=== PATIENT | female | born 1955 | race Caucasian/White ===

== ENCOUNTER 2017-11-29 13:09 | Inpatient (IN) ==
[2017-11-29] MEDS ORDERED: Isovue-370 500 ML INFUS..BTL IV ONE (17:03)
[2017-11-29] MEDS ORDERED: valACYclovir 500 MG TABLET PO STA (17:04)
--- NOTE | 2017-11-29 17:06 | Emergency Department Note ---
Disposition Clinical Impression: Pulmonary embolism, Deep vein thrombosis of lower extremity, Shortness of breath, Shingles Disposition: Admitted As Inpatient Condition: Fair Time of Disposition: 20:03 Extremity Problem HPI - General Chief complaint: ED Extremity Problem,Nontraumatic Stated complaint: Leg swelling s/p dvt treatment Time Seen by Provider: 11/29/17 16:57 Source: patient Mode of arrival: ambulatory Limitations: no limitations Nursing Notes Reviewed: Yes Vital Signs Reviewed: Yes - History of Present Illness HPI Narrative: Patient presents to the ED with the chief complaint of right leg pain and shortness of breath. Patient was recently diagnosed with a DVT and placed on Xarelto. She reports that her right leg is now more swollen and painful, which is radiating up into her thigh. She is also had the onset of shortness of breath and exertional dyspnea. No chest pain. No fever, chills, abdominal pain, nausea or vomiting. No previous history of PE. She states that she just does not feel right. Pain Scale: 5 - Related Data Home Medications Medication Instructions Recorded Confirmed Atorvastatin Calcium [Lipitor] 20 mg PO HS 11/29/17 11/29/17 Carvedilol 12.5 mg PO BID 11/29/17 11/29/17 Ergocalciferol (VITAMIN D2) 50,000 unit PO QWEEK 11/29/17 11/29/17 [Vitamin D2] Insulin Glargine,Hum.rec.anlog 30 unit SQ BID 11/29/17 11/29/17 [Basaglar Kwikpen U-100] Levothyroxine Sodium 88 mcg PO DAILY 11/29/17 11/29/17 Lisinopril-HCTZ 20-12.5 [Prinzide 1 tab PO DAILY 11/29/17 11/29/17 20-12.5] Potassium Chloride [Klor-Con 10] 10 meq PO DAILY 11/29/17 11/29/17 Rivaroxaban [Xarelto] 15 mg PO BID 11/29/17 11/29/17 Sertraline [Zoloft] 50 mg PO DAILY 11/29/17 11/29/17 Allergies Allergy/AdvReac Type Severity Reaction Status Date / Time cephalexin [From Keflex] Allergy See Verified 11/29/17 17:24 Comments codeine Allergy See Verified 11/29/17 17:24 Comments Review of Systems: As reviewed in the HPI. All other systems reviewed are negative or normal. Past Medical History - Past Medical History Attestation: Yes The following information was validated with the patient. Source: patient Medical history: Reports: DVT, diabetes, hypertension, thyroid disease Psychiatric history: Reports: no psych history - Social History Smoking Status: Never smoker Smokeless Tobacco Status: No Physical Exam CONSTITUTIONAL: [well appearing in no acute distress] SKIN: [Warm, dry, and intact without rash] EYES: [extraocular movements are grossly intact, clear conjunctiva] HENT: [Normocephalic, atraumatic, moist mucus membranes] NECK: [no obvious swelling, normal range of motion] PULMONARY: [normal chest rise and fall, no respiratory distress or stridor CARDIOVASCULAR: [regular rate, distal extremities are warm and well perfused] GASTROINSTESTINAL: [nondistended, non-tender] GENITOURINARY: [deferred] NEUROLOGIC: [normal speech, moves all extremities] MUSCULOSKELETAL: [no gross deformities, atraumatic, right lower extremity is diffusely swollen and tender] PSYCHIATRIC: [normal mood and affect] - General Limitations: no limitations General appearance: alert, in no apparent distress Course Course Narrative: Patient presenting with shortness of breath and extremity swelling. Has a DVT. Concern over PE due to her dyspnea and exertional dyspnea. We will get a CT of her chest. - Reevaluation(s) Reevaluation #1: [facility] called and the patient does have bilateral PEs with moderate clot burden, but no signs of right heart strain. We will get her started on heparin and admit. Vital Signs Temperature 98.8 F 11/29/17 13:10 Pulse Rate 73 11/29/17 13:10 Respiratory Rate 16 11/29/17 13:10 Blood Pressure 124/74 11/29/17 13:10 O2 Sat by Pulse Oximetry 96 11/29/17 13:10 Temperature 98.8 F 11/29/17 13:10 Pulse Rate 77 11/29/17 13:13 Respiratory Rate 18 11/29/17 13:13 Blood Pressure 143/76 11/29/17 13:13 O2 Sat by Pulse Oximetry 98 11/29/17 17:16 Oxygen Delivery Oxygen Delivery Room Air Extremity Problem, Nontraumati - Medical Records Medical records reviewed: Yes I reviewed the patient's medical records. - Lab Data Lab results reviewed: Yes I reviewed the patient's lab results. Result diagrams: 11/29/17 17:15 11/29/17 17:15 Lab Results 11/29/17 11/29/17 11/29/17 Range/Units 17:15 17:15 17:15 WBC 2.9 L (4.3-11.1) K/mcL RBC 4.66 (3.82-4.97) M/mcL Hgb 14.6 (11.5-15.4) g/dL Hct 41.6 (35.3-44.9) % MCV 89.3 (83.0-100.0) fL MCH 31.3 (28.0-33.3) pg MCHC 35.1 (31.6-35.5) g/dL RDW 13.8 (11.5-14.5) % Plt Count 151 (140-400) K/mcL MPV 9.3 L (9.4-12.4) fL Immature Gran % 0.3 (0-4) % Seg Neutrophils % 56.4 % Lymphocytes % 29.2 % Monocytes % 11.7 % Eosinophils % 1.7 % Basophils % 0.7 % Neutrophils # 1.6 (1.6-8.9) K/mcL Lymphocytes # 0.9 (0.6-4.6) K/mcL Monocytes # 0.3 (0.0-1.3) K/mcL Eosinophils # 0.1 (0.0-0.6) K/mcL Basophils # 0.0 (0.0-0.2) K/mcL Immature Plt Fraction 1.7 (1.1-6.1) % PT 17.6 H (9.4-12.1) Seconds INR 1.6 APTT 35.3 (26.0-36.0) Seconds Sodium 138 (136-145) mEq/L Potassium 3.2 L (3.5-5.1) mEq/L Chloride 103 (98-107) mEq/L Carbon Dioxide 27 (23-29) mEq/L BUN 10 (6-20) mg/dL Creatinine 0.64 (0.60-1.20) mg/dL Est GFR ( Amer) > 60 (> 60) Est GFR (Non-Af Amer) > 60 (> 60) BUN/Creatinine Ratio 16 (6-26) Glucose 173 H (70-105) mg/dL Calculated Osmolality 289 (280-300) Calcium 9.6 (8.6-10.3) mg/dL Troponin I < 0.03 (< 0.04) ng/mL B-Natriuretic Peptide (Less than 100) pg/mL Urine Color (Yellow) Urine Clarity (Clear) Urine pH (5.0-8.0) pH Units Ur Specific [place] (1.010-1.025) Urine Protein (Neg-Trace) mg/dL Urine Glucose (UA) (Normal) mg/dL Urine Ketones (Negative) mg/dL Urine Blood (Negative) Urine Nitrite (Negative) Urine Bilirubin (Negative) Urine Urobilinogen (Normal) mg/dL Ur Leukocyte Esterase (Negative) Urine Microscopic RBC (0-3) per hpf Urine Microscopic WBC (0-3) per hpf Ur Squamous Epith Cells (None-Few) per lpf Urine Bacteria (None-Few) per hpf Hyaline Casts (None-Few) per lpf Ur Culture Indicated? (NO) 11/29/17 11/29/17 11/29/17 Range/Units 17:15 17:45 19:36 WBC (4.3-11.1) K/mcL RBC (3.82-4.97) M/mcL Hgb (11.5-15.4) g/dL Hct (35.3-44.9) % MCV (83.0-100.0) fL MCH (28.0-33.3) pg MCHC (31.6-35.5) g/dL RDW (11.5-14.5) % Plt Count (140-400) K/mcL MPV (9.4-12.4) fL Immature Gran % (0-4) % Seg Neutrophils % % Lymphocytes % % Monocytes % % Eosinophils % % Basophils % % Neutrophils # (1.6-8.9) K/mcL Lymphocytes # (0.6-4.6) K/mcL Monocytes # (0.0-1.3) K/mcL Eosinophils # (0.0-0.6) K/mcL Basophils # (0.0-0.2) K/mcL Immature Plt Fraction (1.1-6.1) % PT 16.8 H (9.4-12.1) Seconds INR 1.5 APTT 33.1 (26.0-36.0) Seconds Sodium (136-145) mEq/L Potassium (3.5-5.1) mEq/L Chloride (98-107) mEq/L Carbon Dioxide (23-29) mEq/L BUN (6-20) mg/dL Creatinine (0.60-1.20) mg/dL Est GFR ( Amer) (> 60) Est GFR (Non-Af Amer) (> 60) BUN/Creatinine Ratio (6-26) Glucose (70-105) mg/dL Calculated Osmolality (280-300) Calcium (8.6-10.3) mg/dL Troponin I (< 0.04) ng/mL B-Natriuretic Peptide 60 (Less than 100) pg/mL Urine Color Dark Yellow (Yellow) Urine Clarity Cloudy A (Clear) Urine pH 5.5 (5.0-8.0) pH Units Ur Specific [place] 1.024 (1.010-1.025) Urine Protein 30 H (Neg-Trace) mg/dL Urine Glucose (UA) 100 H (Normal) mg/dL Urine Ketones Negative (Negative) mg/dL Urine Blood Moderate H (Negative) Urine Nitrite Negative (Negative) Urine Bilirubin Small H (Negative) Urine Urobilinogen Normal (Normal) mg/dL Ur Leukocyte Esterase Moderate H (Negative) Urine Microscopic RBC 5-15 H (0-3) per hpf Urine Microscopic WBC 30-50 H (0-3) per hpf Ur Squamous Epith Cells Many H (None-Few) per lpf Urine Bacteria Many H (None-Few) per hpf Hyaline Casts Moderate H (None-Few) per lpf Ur Culture Indicated? NO. A (NO) - Radiology Data Radiology results reviewed: Yes I reviewed the patient's radiology results. - EKG Data EKG attestation: Yes I reviewed and interpreted this EKG. EKG results narrative: Irregular rhythm, rate 86, QRS 90, QTC 408, no acute ischemic changes, normal axis S.B.A.R. - S.B.A.R. Situation: Demographics, MOA Background: Presenting Complaint, Relevant PMH, Meds, & Allergies Assessment: Vital Signs, Course and respsone to treatment, Exam Concerns, Patient/Family Expectation, Pertinant Lab Results, Outstanding Labs Recommendation: Recommendation based on pending studies, treatments, or consults S.B.A.R. Report Given to: hospitalist service Yolanda Repor Time: 20:15 Attestation Statement - Attestation Attestation: I, Tuan Graham DO, examined this patient [id number] and my medical decision-making was reviewed with Dr. Kaden Shelton, Resident Physician. I agree with the documented findings, disposition and treatment plan as described except to the extent set forth below. Please see my progress notes for details.
[2017-11-29 17:39] LABS: Basophils % 0.7 %; Eosinophils # 0.1 K/mcL (0.0-0.6); Eosinophils % 1.7 %; Hematocrit 41.6 % (35.3-44.9); Hemoglobin 14.6 g/dL (11.5-15.4); Immature Granulocytes % 0.3 % (0-4); Immature Platelets 1.7 % (1.1-6.1); Lymphocytes # 0.9 K/mcL (0.6-4.6); Lymphocytes % 29.2 %; Mean Corpuscular HGB Conc 35.1 g/dL (31.6-35.5); Mean Corpuscular Hemoglobin 31.3 pg (28.0-33.3); Mean Corpuscular Volume 89.3 fL (83.0-100.0); Mean Platelet Volume 9.3 fL (9.4-12.4); Monocytes # 0.3 K/mcL (0.0-1.3); Monocytes % 11.7 %; Neutrophils # 1.6 K/mcL (1.6-8.9); Platelet Count 151 K/mcL (140-400); Red Blood Count 4.66 M/mcL (3.82-4.97); Red Cell Distribution Width 13.8 % (11.5-14.5); Segmented Neutrophils % 56.4 %
[2017-11-29 17:41] LABS: INR 1.6; Prothrombin Time 17.6 Seconds (9.4-12.1)
[2017-11-29 17:44] LABS: Activated Partial Thrombo Time 35.3 Seconds (26.0-36.0)
[2017-11-29 17:55] LABS: BUN/Creatinine Ratio 16 (6-26); Blood Urea Nitrogen 10 mg/dL (6-20); Calcium 9.6 mg/dL (8.6-10.3); Carbon Dioxide 27 mEq/L (23-29); Chloride 103 mEq/L (98-107); Glucose 173 mg/dL (70-105); Osmolality,Calculated 289 (280-300); Potassium 3.2 mEq/L (3.5-5.1); Sodium 138 mEq/L (136-145); Troponin I < 0.03 ng/mL (< 0.04); eGFR For African Americans > 60 (> 60); eGFR For Non-African Americans > 60 (> 60)
[2017-11-29 18:05] LABS: Bilirubin,Urine Small (Negative); Blood,Urine Moderate (Negative); Clarity,Urine Cloudy (Clear); Color,Urine Dark Yellow (Yellow); Glucose,Urine (UA) 100 mg/dL (Normal); Ketones,Urine Negative (Negative); Leukocyte Esterase,Urine Moderate (Negative); Nitrite,Urine Negative (Negative); PH,Urine 5.5 pH Units (5.0-8.0); Protein,Urine 30 mg/dL (Neg-Trace); Specific Gravity,Urine 1.024 (1.010-1.025); Urobilinogen,Urine Normal (Normal)
--- NOTE | 2017-11-29 18:05 | Emergency Department Note ---
Disposition Clinical Impression: Pulmonary embolism, Deep vein thrombosis of lower extremity, Shortness of breath, Shingles Disposition: Admitted As Inpatient Condition: Fair Referrals: Kota Joshi MD [Primary Care Provider] - Time of Disposition: 20:49 General Adult HPI - General Chief complaint: ED Extremity Problem,Nontraumatic Stated complaint: Leg swelling s/p dvt treatment Time Seen by Provider: 11/29/17 16:57 Source: patient Limitations: no limitations - History of Present Illness Pain Scale: 5 - Related Data Home Medications Medication Instructions Recorded Confirmed Atorvastatin Calcium [Lipitor] 20 mg PO HS 11/29/17 11/29/17 Carvedilol 12.5 mg PO BID 11/29/17 11/29/17 Ergocalciferol (VITAMIN D2) 50,000 unit PO QWEEK 11/29/17 11/29/17 [Vitamin D2] Insulin Glargine,Hum.rec.anlog 30 unit SQ BID 11/29/17 11/29/17 [Basaglar Kwikpen U-100] Levothyroxine Sodium 88 mcg PO DAILY 11/29/17 11/29/17 Lisinopril-HCTZ 20-12.5 [Prinzide 1 tab PO DAILY 11/29/17 11/29/17 20-12.5] Potassium Chloride [Klor-Con 10] 10 meq PO DAILY 11/29/17 11/29/17 Rivaroxaban [Xarelto] 15 mg PO BID 11/29/17 11/29/17 Sertraline [Zoloft] 50 mg PO DAILY 11/29/17 11/29/17 Allergies Allergy/AdvReac Type Severity Reaction Status Date / Time cephalexin [From Keflex] Allergy See Verified 11/29/17 17:24 Comments codeine Allergy See Verified 11/29/17 17:24 Comments Past Medical History - Past Medical History Medical history: Reports: DVT, diabetes, hypertension, thyroid disease Psychiatric history: Reports: no psych history - Social History Smoking Status: Never smoker Smokeless Tobacco Status: No Physical Exam - General Limitations: no limitations General appearance: alert, in no apparent distress Course Vital Signs Temperature 98.8 F 11/29/17 13:10 Pulse Rate 73 11/29/17 13:10 Respiratory Rate 16 11/29/17 13:10 Blood Pressure 124/74 11/29/17 13:10 O2 Sat by Pulse Oximetry 96 11/29/17 13:10 Temperature 98.8 F 11/29/17 13:10 Pulse Rate 77 11/29/17 13:13 Respiratory Rate 18 11/29/17 13:13 Blood Pressure 143/76 11/29/17 13:13 O2 Sat by Pulse Oximetry 98 11/29/17 17:16 Oxygen Delivery Oxygen Delivery Room Air Medical Decision Making - Lab Data Result diagrams: 11/29/17 17:15 11/29/17 17:15 Lab Results 11/29/17 11/29/17 11/29/17 Range/Units 17:15 17:15 17:15 WBC 2.9 L (4.3-11.1) K/mcL RBC 4.66 (3.82-4.97) M/mcL Hgb 14.6 (11.5-15.4) g/dL Hct 41.6 (35.3-44.9) % MCV 89.3 (83.0-100.0) fL MCH 31.3 (28.0-33.3) pg MCHC 35.1 (31.6-35.5) g/dL RDW 13.8 (11.5-14.5) % Plt Count 151 (140-400) K/mcL MPV 9.3 L (9.4-12.4) fL Immature Gran % 0.3 (0-4) % Seg Neutrophils % 56.4 % Lymphocytes % 29.2 % Monocytes % 11.7 % Eosinophils % 1.7 % Basophils % 0.7 % Neutrophils # 1.6 (1.6-8.9) K/mcL Lymphocytes # 0.9 (0.6-4.6) K/mcL Monocytes # 0.3 (0.0-1.3) K/mcL Eosinophils # 0.1 (0.0-0.6) K/mcL Basophils # 0.0 (0.0-0.2) K/mcL Immature Plt Fraction 1.7 (1.1-6.1) % PT 17.6 H (9.4-12.1) Seconds INR 1.6 APTT 35.3 (26.0-36.0) Seconds Sodium 138 (136-145) mEq/L Potassium 3.2 L (3.5-5.1) mEq/L Chloride 103 (98-107) mEq/L Carbon Dioxide 27 (23-29) mEq/L BUN 10 (6-20) mg/dL Creatinine 0.64 (0.60-1.20) mg/dL Est GFR ( Amer) > 60 (> 60) Est GFR (Non-Af Amer) > 60 (> 60) BUN/Creatinine Ratio 16 (6-26) Glucose 173 H (70-105) mg/dL Calculated Osmolality 289 (280-300) Calcium 9.6 (8.6-10.3) mg/dL Troponin I < 0.03 (< 0.04) ng/mL B-Natriuretic Peptide (Less than 100) pg/mL Urine Color (Yellow) Urine Clarity (Clear) Urine pH (5.0-8.0) pH Units Ur Specific [place] (1.010-1.025) Urine Protein (Neg-Trace) mg/dL Urine Glucose (UA) (Normal) mg/dL Urine Ketones (Negative) mg/dL Urine Blood (Negative) Urine Nitrite (Negative) Urine Bilirubin (Negative) Urine Urobilinogen (Normal) mg/dL Ur Leukocyte Esterase (Negative) Urine Microscopic RBC (0-3) per hpf Urine Microscopic WBC (0-3) per hpf Ur Squamous Epith Cells (None-Few) per lpf Urine Bacteria (None-Few) per hpf Hyaline Casts (None-Few) per lpf Ur Culture Indicated? (NO) 11/29/17 11/29/17 11/29/17 Range/Units 17:15 17:45 19:36 WBC (4.3-11.1) K/mcL RBC (3.82-4.97) M/mcL Hgb (11.5-15.4) g/dL Hct (35.3-44.9) % MCV (83.0-100.0) fL MCH (28.0-33.3) pg MCHC (31.6-35.5) g/dL RDW (11.5-14.5) % Plt Count (140-400) K/mcL MPV (9.4-12.4) fL Immature Gran % (0-4) % Seg Neutrophils % % Lymphocytes % % Monocytes % % Eosinophils % % Basophils % % Neutrophils # (1.6-8.9) K/mcL Lymphocytes # (0.6-4.6) K/mcL Monocytes # (0.0-1.3) K/mcL Eosinophils # (0.0-0.6) K/mcL Basophils # (0.0-0.2) K/mcL Immature Plt Fraction (1.1-6.1) % PT 16.8 H (9.4-12.1) Seconds INR 1.5 APTT 33.1 (26.0-36.0) Seconds Sodium (136-145) mEq/L Potassium (3.5-5.1) mEq/L Chloride (98-107) mEq/L Carbon Dioxide (23-29) mEq/L BUN (6-20) mg/dL Creatinine (0.60-1.20) mg/dL Est GFR ( Amer) (> 60) Est GFR (Non-Af Amer) (> 60) BUN/Creatinine Ratio (6-26) Glucose (70-105) mg/dL Calculated Osmolality (280-300) Calcium (8.6-10.3) mg/dL Troponin I (< 0.04) ng/mL B-Natriuretic Peptide 60 (Less than 100) pg/mL Urine Color Dark Yellow (Yellow) Urine Clarity Cloudy A (Clear) Urine pH 5.5 (5.0-8.0) pH Units Ur Specific [place] 1.024 (1.010-1.025) Urine Protein 30 H (Neg-Trace) mg/dL Urine Glucose (UA) 100 H (Normal) mg/dL Urine Ketones Negative (Negative) mg/dL Urine Blood Moderate H (Negative) Urine Nitrite Negative (Negative) Urine Bilirubin Small H (Negative) Urine Urobilinogen Normal (Normal) mg/dL Ur Leukocyte Esterase Moderate H (Negative) Urine Microscopic RBC 5-15 H (0-3) per hpf Urine Microscopic WBC 30-50 H (0-3) per hpf Ur Squamous Epith Cells Many H (None-Few) per lpf Urine Bacteria Many H (None-Few) per hpf Hyaline Casts Moderate H (None-Few) per lpf Ur Culture Indicated? NO. A (NO) Attestation Statement - Attestation Attestation: I, Tuan Graham DO, examined this patient [id number] and my medical decision-making was reviewed with Dr. Kaden Shelton, Resident Physician. I agree with the documented findings, disposition and treatment plan as described except to the extent set forth below. Please see my progress notes for details. 61-year-old female presents emergency room for evaluation of right-sided leg pain, shortness breath, poorly controlled because, irritation the posterior aspect of her back over her lower spine. Patient was seen and evaluated and diagnosed with lower extremity DVT several days ago started on Xarelto. Since then she has had issues with glucose control as well as feeling short of breath. Patient denies any trauma or injuries. She does not have any active chest pain fevers chills nausea vomiting or diarrhea. Denies any headache. She has had intermittent blurry vision when she feels like her glucose gets elevated. Physical exam shows a morbidly obese female in some mild respiratory distress. She describes his discomfort more than anything. Her lungs are clear heart is regular. Abdomen is soft. Right lower extremity does have tenderness over the medial aspect identified on the calf. Evaluation the posterior aspect of the back patient clearly has what appears to be shingles at the base of the sacrum. Patient has a burning and irritating sensation that side this time. She denies any other complaints or issues this point. Screening labs CBC chemistry correlation studies as well as urinalysis chest x- ray and DVT study will be completed of the right lower extremity as well as possible CT angiography of the chest rule out the shortness of breath related issues. Patient is otherwise stable at this point. Disposition pending the full workup treatment course and evaluation. Condition the physical exam, medical intervention, medical decision-making and disposition in the resident physician's note. No critical care applied to the patient's treatment course this time. 1900 Patient found to have bilateral pulmonary emboli with moderate clot burden. There is no signs of right heart strain based on CT imaging. Patient had heparin started this time considering her. She has failed outpatient management was Xarelto. She will be admitted to the hospital for further evaluation and management. She denies any hematochezia melena GI bleed gastric ulcers or bleeding disorders in the past. Her hemoglobin is stable. Admission process to be completed at this point. 2034 Patient is comfortable in the bed. Hospitalist was contacted for admission. Patient will be admitted for definitive management of pulmonary emboli with exertional dyspnea and bilateral presentation and failed management was Xarelto in the outpatient setting.
[2017-11-29 18:07] LABS: Bacteria,Urine Many per hpf (None-Few); Squamous Epithelial Cell,Urine Many per lpf (None-Few); WBC,Urine 30-50 per hpf (0-3)
[2017-11-29 18:50] LABS: Hyaline Casts,Urine Moderate per lpf (None-Few)
[2017-11-29] MEDS ORDERED: *HR* Heparin 5,000 UNIT/ML VIAL IVP PRN (18:50)
[2017-11-29] MEDS ORDERED: *HR* Heparin 5,000 UNIT/ML VIAL IVP ONE (18:52)
[2017-11-29] MEDS: Heparin 25,000 UNIT/500 ML D5W 25,000 UNIT/500 ML BAG IVC SCH (20:03)
[2017-11-29 20:04] LABS: Hemoglobin 13.8 g/dL (11.5-15.4); Immature Platelets 1.5 % (1.1-6.1); Mean Corpuscular HGB Conc 35.4 g/dL (31.6-35.5); Mean Corpuscular Hemoglobin 31.5 pg (28.0-33.3); Mean Platelet Volume 9.2 fL (9.4-12.4); Red Blood Count 4.38 M/mcL (3.82-4.97); Red Cell Distribution Width 13.9 % (11.5-14.5)
[2017-11-29 20:16] LABS: INR 1.5; Prothrombin Time 16.8 Seconds (9.4-12.1)
[2017-11-29 20:19] LABS: Activated Partial Thrombo Time 33.1 Seconds (26.0-36.0)
[2017-11-29] MEDS ORDERED: Naloxone 0.4 MG/ML INJ IVP PRN (21:41)
[2017-11-29] MEDS ORDERED: *HR* Dextrose 50 % in Water (Syg) 50 ML SYRINGE IVP PRN (21:45)
[2017-11-29] MEDS ORDERED: Dextrose Gel 15 GM/37.5 ML TUBE PO PRN ×2 (21:45)
[2017-11-29] MEDS ORDERED: D5% in Water 1,000 ML IVC PRN (21:45)
--- NOTE | 2017-11-29 21:45 | Internal Med History&Physical ---
Date of Encounter: 11/29/17 Time of Encounter: 21:42 Internal Medicine - H&P: HPI Chief complaint: Shortness of breath Admitted From: Home Plans for Post Hospital Care: Home History of present illness: Ms. Real is a 61 year old female with history of recently diagnosed right lower extremity DVT on xarelto, diabetes mellitus, hypertension, chronic intermittent a smoker for 12 year came to ER for shortness of breath is started for 5 days ago associated with nausea. Patient recently got diagnosed on right leg DVT after having trauma in his started anticoagulation therapy and her right leg swelling is started to decrease but for last for 5 days patient noticed reappearance of swelling along with a newly onset shortness of breath. In ER CT angiogram was done with finding of bilateral newly diagnosed pulmonary edema. Heparin drip was restarted. ER physician called on-call hospitalists for further management of PE with failed outpatient anticoagulation therapy. Patient has been hemodynamically stable. Patient denies fever, chills, vomiting, chest pain, abdominal pain, urinary or bowel complaint. Patient also denies headache, loss of consciousness, dizziness. She complained of pain and irritation in the lower back. In ER shingles was diagnosed and 1 dose of Valtrex given. Past Med Surg Social Fam HX - Past Medical History Medical history: DVT, diabetes, hypertension, thyroid disease Psychiatric history: no psych history - Social History Smoking Status: Never smoker Smokeless Tobacco Status: No Internal Medicine - H&P: Meds Atorvastatin Calcium [Lipitor] 20 mg PO HS 11/29/17 [History] Carvedilol 12.5 mg PO BID 11/29/17 [History] Ergocalciferol (VITAMIN D2) [Vitamin D2] 50,000 unit PO QWEEK 11/29/17 [History] Insulin Glargine,Hum.rec.anlog [Basaglar Kwikpen U-100] 30 unit SQ BID 11/29/17 [History] Levothyroxine Sodium 88 mcg PO DAILY 11/29/17 [History] Lisinopril-HCTZ 20-12.5 [Prinzide 20-12.5] 1 tab PO DAILY 11/29/17 [History] Potassium Chloride [Klor-Con 10] 10 meq PO DAILY 11/29/17 [History] Rivaroxaban [Xarelto] 15 mg PO BID 11/29/17 [History] Sertraline [Zoloft] 50 mg PO DAILY 11/29/17 [History] 3 Allergy/AdvReac Type Severity Reaction Status Date / Time cephalexin [From Keflex] Allergy See Verified 11/29/17 17:24 Comments codeine Allergy See Verified 11/29/17 17:24 Comments All Systems PM: A 10-system review of systems was performed and is negative for pertinent findings except as documented above in the HPI. - Constitutional Vitals: Temp Pulse Resp BP Pulse Ox 98.8 F 77 18 143/76 98 11/29/17 13:10 11/29/17 13:13 11/29/17 13:13 11/29/17 13:13 11/29/17 17:16 Exam: General appearance: Obese, No acute distress, A&O X 3. Oxygen by Nasal cannula. Family at bedside Head exam: Atraumatic Eye exam: EOMI, PERRLA ENT exam: Moist oral mucosa Neck nontender, supple Respiratory exam: Clear to auscultation bilaterally Cardiovascular exam: Regular rate and rhythm, no systolic murmur Abdominal exam: Soft, nontender, nondistended, positive bowel sounds Extremities exam: Right lower extremity cough tenderness, Homans sign positive, swelling slight redness and warm. Skin-confluent blister like rashes over the sacrum appear shingles. Neurological exam: Alert, awake, oriented 3, CN II-XII intact, no focal deficits. No facial droop. Normal speech. Internal Med - H&P Results - Labs CBC & Chem 7: 11/29/17 19:36 11/29/17 17:15 - Assessment and plan (1) Pulmonary embolism Current Visit: Yes Status: Acute Assessment and plan: Newly diagnosed bilateral PE while on oral anticoagulant. Will start heparin pulmonary weight-based drip. Echocardiogram. Will also consult dope sprayer. Patient may need 3-5 days of heparin IV treatment and possibly Coumadin but will follow pulmonologists instruction. Qualifiers: Chronicity: acute Acute cor pulmonale presence: without acute cor pulmonale Qualified Code(s): I26.99 - Other pulmonary embolism without acute cor pulmonale (2) Deep vein thrombosis of lower extremity Current Visit: Yes Status: Acute Assessment and plan: History of trauma. Has been on xarelto but failed outpatient therapy. Doppler ultrasound will be ordered Qualifiers: Affected thrombotic vein of extremity: other lower extremity vein Chronicity: chronic Laterality: right Qualified Code(s): I82.591 - Chronic embolism and thrombosis of other specified deep vein of right lower extremity (3) Diabetes mellitus Current Visit: Yes Status: Acute Assessment and plan: Continue home medicine with Accu-Chek and sliding scale. Diabetes diet Qualifiers: Diabetes mellitus type: type 2 Diabetes mellitus chcf insulin use: with watermelon harvesting supervisor use Diabetes mellitus complication status: without complication Qualified Code(s): E11.9 - Type 2 diabetes mellitus without complications; Z79.4 - USP (current) use of insulin; Z79.4 - long term care administrator ( current) use of insulin; Z79.4 - long term care administrator (current) use of insulin; Z79.4 - long term care administrator (current) use of insulin (4) Hypertension Current Visit: Yes Status: Chronic Assessment and plan: Continue home medicine. Close monitoring Qualifiers: Hypertension type: essential hypertension Qualified Code(s): I10 - Essential (primary) hypertension (5) Shingles Current Visit: Yes Status: Acute Assessment and plan: Valtrex 1000 mg every 8 hours oral Qualifiers: Herpes zoster complications: without complications Qualified Code(s): B02.9 - Zoster without complications - Time Spent With Patient Total time spent is greater than 50% in coordination of care (as documented) at patient's floor/unit and/or counseling patient: 25 - 35 minutes
[2017-11-29] MEDS: valACYclovir 500 MG TABLET PO SCH (22:45)
[2017-11-30] MEDS: Gabapentin 100 MG CAPSULE PO SCH ×4 (03:46→21:25)
[2017-11-30] MEDS: *HR* OxyCODONE Immed Rel 5 MG TABLET PO PRN ×3 (03:46→21:25)
[2017-11-30 04:04] LABS: Basophils % 0.4 %; Eosinophils % 1.5 %; Hematocrit 36.8 % (35.3-44.9); Hemoglobin 12.8 g/dL (11.5-15.4); Immature Granulocytes % 0.4 % (0-4); Immature Platelets 1.8 % (1.1-6.1); Lymphocytes # 1.1 K/mcL (0.6-4.6); Lymphocytes % 38.9 %; Mean Corpuscular HGB Conc 34.8 g/dL (31.6-35.5); Mean Corpuscular Hemoglobin 31.4 pg (28.0-33.3); Mean Corpuscular Volume 90.2 fL (83.0-100.0); Mean Platelet Volume 9.2 fL (9.4-12.4); Monocytes # 0.3 K/mcL (0.0-1.3); Monocytes % 11.6 %; Neutrophils # 1.3 K/mcL (1.6-8.9); Platelet Count 130 K/mcL (140-400); Red Blood Count 4.08 M/mcL (3.82-4.97); Red Cell Distribution Width 13.6 % (11.5-14.5); Segmented Neutrophils % 47.2 %
[2017-11-30 04:29] LABS: Alanine Aminotransferase 13 Units/L (7-52); Albumin 3.5 g/dL (3.5-5.7); Albumin/Globulin Ratio 1.5 (1.1-2.2); Alkaline Phosphatase 46 Units/L (34-104); Aspartate Amino Transferase 13 Units/L (13-39); BUN/Creatinine Ratio 15 (6-26); Bilirubin,Total 0.8 mg/dL (0.3-1.0); Blood Urea Nitrogen 9 mg/dL (6-20); Calcium 8.6 mg/dL (8.6-10.3); Carbon Dioxide 25 mEq/L (23-29); Chloride 105 mEq/L (98-107); Chol/HDL Ratio 8.1 (0-4.9); Cholesterol 153 mg/dL (< 200); Globulin 2.4 g/dL (2.4-3.5); Glucose 205 mg/dL (70-105); HDL Cholesterol 19 mg/dL (40-59); Osmolality,Calculated 297 (280-300); Sodium 141 mEq/L (136-145); Total Protein 5.9 g/dL (6.4-8.9); Triglycerides 459 mg/dL (< 150); eGFR For African Americans > 60 (> 60); eGFR For Non-African Americans > 60 (> 60)
[2017-11-30 04:37] LABS: Platelet Estimate Decreased (Normal); Reactive Lymphocytes Present (Not Present)
[2017-11-30 04:38] LABS: Large Platelets Present (Not Present)
[2017-11-30] MEDS: valACYclovir 500 MG TABLET PO SCH ×3 (05:53→21:24)
[2017-11-30] MEDS: Lisinopril-HCTZ 20-12.5mg TABLET PO SCH (07:55)
[2017-11-30] MEDS: Insulin LISPRO 300 UNITS/3 ML VIAL SQ SCH ×3 (07:59→16:57)
--- NOTE | 2017-11-30 08:33 | Pulmonology Consult Note ---
Date of Encounter: 11/30/17 Time of Encounter: 08:30 Assessment and Plan (1) Pulmonary embolism Current Visit: Yes Status: Acute Patient with acute pulmonary embolism and recent DVT with her age group and her history of precancerous polyps according to the patient in the past colonoscopy malignancy needs to be evaluated and this was discussed with primary team and CT abdomen and pelvis was recommended and that was done. Patient has some history of possible injury to the right lower extremity and that could be possible provocative reason for the blood clot. It is not clear to me if it was her compliancy or she truly failed treatment. I still feel as long as malignancies being ruled out it would be reasonable to continue Xarelto since she is hemodynamically stable and no indication for thrombolytics. Plan of care discussed with primary team and thank you for the consultation. Qualifiers: Chronicity: acute Acute cor pulmonale presence: without acute cor pulmonale Qualified Code(s): I26.99 - Other pulmonary embolism without acute cor pulmonale (2) Deep vein thrombosis of lower extremity Current Visit: Yes Status: Acute Qualifiers: Affected thrombotic vein of extremity: other lower extremity vein Chronicity: chronic Laterality: right Qualified Code(s): I82.591 - Chronic embolism and thrombosis of other specified deep vein of right lower extremity (3) Shortness of breath Current Visit: Yes Status: Acute (4) Suspected sleep apnea Current Visit: Yes Status: Suspected Patient might benefit from sleep study as outpatient History of Present Illness Consult date: 11/30/17 Requesting physician: Magda Pardo Reason for consult: pulmonary embolism Chief complaint: Shortness of breath History of present illness: This is a pleasant 61-year-old female with no history of hypercoagulable condition and was diagnosed recently with right lower lobe extremity DVT and she was on Xarelto and she stated that she was having more shortness of breath and was found to have pulmonary embolism. Patient denies any history of malignancies but she stated she had precancerous polyps and had a colonoscopy and she would need a follow-up colonoscopy. It is not clear if this DVT was provoked or not but there is a vague history of possible injury to the right lower extremity. Patient denies any history of COPD and she denies any significant productive cough or dyspnea and she did not have any chest on at this time. Patient has been having skin eruption in her lower back and being treated for shingles. Patient has some history of snoring but denies any history of sleep apnea. She denies any hemoptysis and no significant wheezing. Past Med Surg Social Fam HX - Past Medical History Medical history: DVT, diabetes, hypertension, thyroid disease Psychiatric history: no psych history - Social History Smoking Status: Never smoker Smokeless Tobacco Status: No Alcohol use: occasionally Drug use: none - Family History Father Name: velia melton Age: 89 Family Member Ethnicity: Non- Living Status: Still Living Hx Family Cardiac Disorders: Yes (valve replacement, stents) Hx Family Respiratory Disorders: Yes (exposure to asbestis) Hx Family Cancer: Yes (prostate) Hx Family Endocrine Disorder: No Medications and Allergies Atorvastatin Calcium [Lipitor] 20 mg PO HS 11/29/17 [History] Carvedilol 12.5 mg PO BID 11/29/17 [History] Ergocalciferol (VITAMIN D2) [Vitamin D2] 50,000 unit PO QWEEK 11/29/17 [History] Insulin Glargine,Hum.rec.anlog [Basaglar Kwikpen U-100] 30 unit SQ BID 11/29/17 [History] Levothyroxine Sodium 88 mcg PO DAILY 11/29/17 [History] Lisinopril-HCTZ 20-12.5 [Prinzide 20-12.5] 1 tab PO DAILY 11/29/17 [History] Potassium Chloride [Klor-Con 10] 10 meq PO DAILY 11/29/17 [History] Rivaroxaban [Xarelto] 15 mg PO BID 11/29/17 [History] Sertraline [Zoloft] 50 mg PO DAILY 11/29/17 [History] 3 Allergy/AdvReac Type Severity Reaction Status Date / Time cephalexin [From Keflex] Allergy See Verified 11/29/17 17:24 Comments codeine Allergy See Verified 11/29/17 17:24 Comments All Systems: The remainder of the systems were reviewed and are negative Physical Examination Vital Signs: Vital Signs, Last 4 Hours Temp Pulse Resp BP Pulse Ox 11/30/17 06:48 98.1 F 70 15 146/82 95 General appearance: no acute distress Eyes: nonicteric ENT: oropharynx moist Mallampati (class): 3 Neck: supple, no JVD Effort: normal Inspection: normal Auscultation: left: clear, right: rhonchi Percussion: bilateral: not dull Cardiovascular: regular rate and rhythm Gastrointestinal: normoactive bowel sounds, non-distended Integumentary: rash Extremities: no cyanosis, edema normal mental status, non-focal exam mood appropriate Results - Laboratory Findings CBC and BMP: 11/30/17 03:26 11/30/17 03:26 PT/INR, D-dimer PT 16.8 Seconds (9.4-12.1) H 11/29/17 19:36 Abnormal lab findings: Abnormal lab results WBC 2.8 K/mcL (4.3-11.1) L 11/30/17 03:26 Plt Count 130 K/mcL (140-400) L 11/30/17 03:26 MPV 9.2 fL (9.4-12.4) L 11/30/17 03:26 Neutrophils # 1.3 K/mcL (1.6-8.9) L 11/30/17 03:26 Reactive Lymphocytes Present (Not Present) A 11/30/17 03:26 Platelet Estimate Decreased (Normal) L 11/30/17 03:26 Large Platelets Present (Not Present) A 11/30/17 03:26 PT 16.8 Seconds (9.4-12.1) H 11/29/17 19:36 APTT 72.4 Seconds (26.0-36.0) H D 11/30/17 03:26 Potassium 3.0 mEq/L (3.5-5.1) L 11/30/17 03:26 Creatinine 0.59 mg/dL (0.60-1.20) L 11/30/17 03:26 Glucose 205 mg/dL (70-105) H 11/30/17 03:26 Serum Total Protein 5.9 g/dL (6.4-8.9) L 11/30/17 03:26 Triglycerides 459 mg/dL (< 150) H 11/30/17 03:26 HDL Cholesterol 19 mg/dL (40-59) L 11/30/17 03:26 Cholesterol/HDL Ratio 8.1 (0-4.9) H 11/30/17 03:26 Urine Clarity Cloudy (Clear) A 11/29/17 17:45 Urine Protein 30 mg/dL (Neg-Trace) H 11/29/17 17:45 Urine Glucose (UA) 100 mg/dL (Normal) H 11/29/17 17:45 Urine Blood Moderate (Negative) H 11/29/17 17:45 Urine Bilirubin Small (Negative) H 11/29/17 17:45 Ur Leukocyte Esterase Moderate (Negative) H 11/29/17 17:45 Urine Microscopic RBC 5-15 per hpf (0-3) H 11/29/17 17:45 Urine Microscopic WBC 30-50 per hpf (0-3) H 11/29/17 17:45 Ur Squamous Epith Cells Many per lpf (None-Few) H 11/29/17 17:45 Urine Bacteria Many per hpf (None-Few) H 11/29/17 17:45 Hyaline Casts Moderate per lpf (None-Few) H 11/29/17 17:45 Ur Culture Indicated? NO. (NO) A 11/29/17 17:45 - Diagnostic Findings CT scan - chest: report reviewed, image reviewed - Clinical Findings Intake & Output: Intake & Output 11/29/17 11/30/17 11/30/17 23:59 07:59 15:59 Intake Total 475 / 475 Output Total 0 / 0 Balance 475 / 475 Weight 113 kg Consult Discharge Plan - Plan Referrals: Kota Joshi MD [Primary Care Provider] -
[2017-11-30] MEDS ORDERED: NON-FORMULARY MEDICATION 1 EACH EACH (Insulin Glargine,Hum.Rec.Anlog [Basaglar Kwikpen U-1 SQ SCH (09:00)
[2017-11-30] MEDS: Insulin DETEMIR 100 UNIT/ML X5UNITS SQ SCH ×2 (09:38→21:26)
[2017-11-30] MEDS ORDERED: Isovue-370 500 ML INFUS..BTL IV ONE (10:15)
[2017-11-30] MEDS: Heparin 25,000 UNIT/500 ML D5W 25,000 UNIT/500 ML BAG IVC SCH ×2 (10:22→23:16)
[2017-11-30] MEDS ORDERED: *HR* Heparin 5,000 UNIT/ML VIAL IVP PRN ×2 (15:32)
--- NOTE | 2017-11-30 15:52 | Internal Med Progress Note ---
<Saul Porter T - Last Filed: 11/30/17 16:23> Date of Encounter: 11/30/17 - Assessment and plan (1) Pulmonary embolism Current Visit: Yes Status: Acute Qualifiers: Chronicity: acute Acute cor pulmonale presence: without acute cor pulmonale Qualified Code(s): I26.99 - Other pulmonary embolism without acute cor pulmonale (2) Deep vein thrombosis of lower extremity Current Visit: Yes Status: Acute Qualifiers: Affected thrombotic vein of extremity: other lower extremity vein Chronicity: chronic Laterality: right Qualified Code(s): I82.591 - Chronic embolism and thrombosis of other specified deep vein of right lower extremity (3) Shingles Current Visit: Yes Status: Acute Qualifiers: Herpes zoster complications: without complications Qualified Code(s): B02.9 - Zoster without complications (4) Diabetes mellitus Current Visit: Yes Status: Acute Qualifiers: Diabetes mellitus type: type 2 Diabetes mellitus termite control servicer insulin use: with [facility] use Diabetes mellitus complication status: without complication Qualified Code(s): E11.9 - Type 2 diabetes mellitus without complications; Z79.4 - intermediate (current) use of insulin; Z79.4 - termite exterminator ( current) use of insulin; Z79.4 - termite exterminator (current) use of insulin; Z79.4 - termite exterminator (current) use of insulin (5) Hypertension Current Visit: Yes Status: Chronic Qualifiers: Hypertension type: essential hypertension Qualified Code(s): I10 - Essential (primary) hypertension - Time Spent With Patient Total time spent is greater than 50% in coordination of care (as documented) at patient's floor/unit and/or counseling patient: - Constitutional Vitals: Temp Pulse Resp BP Pulse Ox 98.8 F 81 15 123/77 95 11/30/17 15:41 11/30/17 15:41 11/30/17 15:41 11/30/17 15:41 11/30/17 06:48 Internal Medicine: Result - Labs CBC & Chem 7: 11/30/17 03:26 11/30/17 03:26 Labs: Short CBC 11/30/17 Range/Units 03:26 WBC 2.8 L (4.3-11.1) K/mcL Hgb 12.8 (11.5-15.4) g/dL Hct 36.8 (35.3-44.9) % Plt Count 130 L (140-400) K/mcL Neutrophils # 1.3 L (1.6-8.9) K/mcL BMP 11/30/17 03:26 Sodium 141 Potassium 3.0 L Chloride 105 Carbon Dioxide 25 BUN 9 Creatinine 0.59 L Glucose 205 H Calcium 8.6 Liver Function 11/30/17 Range/Units 03:26 Total Bilirubin 0.8 (0.3-1.0) mg/dL AST 13 (13-39) Units/L ALT 13 (7-52) Units/L Alkaline Phosphatase 46 (34-104) Units/L Albumin 3.5 (3.5-5.7) g/dL - ABG Interpretation ABG results: PT/INR, D-dimer PT 16.8 Seconds (9.4-12.1) H 11/29/17 19:36 - Impressions Impressions Abdomen/Pelvis CT 11/30/17 13:00 IMPRESSION: 1. Right external iliac adenopathy of unclear etiology. If patient has prior CTs of the abdomen and pelvis (not in our system) prior exam can be compared if available and addendum made accordingly. The GI malignancy mentioned in the history is not well seen. 2. Mild intrahepatic ductal prominence, likely related to prior cholecystectomy. 3. Splenomegaly. 4. Status post hysterectomy. D/ / 11/30/2017 14:16:37 Truman Henriquez MD / [email or web address] Interpreting Provider: Truman Henriquez MD Echocardiogram 11/30/17 22:13 Impressions: LVEF 60-65%. Mild left ventricular diastolic dysfunction. Normal right ventricular structure and function. Mild mitral regurgitation. Mild tricuspid regurgitation. Borderline pulmonary hypertension. Left Ventricular Wall Motion: Rest Echo Findings All wall segments showed normal motion. Findings: Study Quality * Technically adequate exam. ECG Findings * Normal sinus rhythm with atrial ectopy. Left Ventricle * LVEF 60-65%. * Normal LV chamber size, wall thickness and function. * Mild left ventricular diastolic dysfunction. Right Ventricle * Normal right ventricular structure and function. Left Atrium * Mildly dilated left atrium. Right Atrium * Normal right atrial size. Mitral Valve * Normal mitral valve structure. * No mitral stenosis. * Mild mitral regurgitation. Aortic Valve * No aortic regurgitation. * Trileaflet aortic valve. * No aortic stenosis. Tricuspid Valve * Tricuspid valve not well visualized. * Mild tricuspid regurgitation. * Estimated RA pressure is 3 mmHg. * Estimated RVSP is 34 mmHg. * Borderline pulmonary hypertension. Pulmonic Valve * Pulmonic valve is not well visualized. * No pulmonic stenosis. * No pulmonic regurgitation. Pulmonary Artery * Pulmonary artery not well visualized. Aorta * Normally sized aortic root. Pericardium * There is no pericardial effusion present. Interatrial Septum * No evidence of PFO by color Doppler. IVC * The IVC is not dilated. Consult Discharge Plan - Plan Referrals: Kota Joshi MD [Primary Care Provider] - - Attending Attestation I examined this patient and my medical decision-making was reviewed with the Resident Physician on 11/30/17. I agree with the documented findings, disposition and treatment plan as described except to the extent set forth below. 61 F with recently diagnosed Factor V leiden, DVT 11/17, presented with SOB, with acute unprovoked PE without R heart strain. She is not hypoxic or tachycardic. Incidental finding of R gluteal region shingles. Abd and Pelvis CT with contrast shows no evidence of malignancy, Chest CTA with PE. Other labs unremarkable It is difficult to say at this time that this is a failure of treatment as patient has no acute signs that accompany PE viz-pleuritic chest pain, hypoxia, tachcyardia. She is clinically and hemodynamically stable She already has an appointment with Heme/Onc, encourage to follow Lymphadenopathy on Ct scan is possibly reactive due to shingles on the R gluteus. Anticipate dsicharge am, continue heparin <Eleazar Gee - Last Filed: 11/30/17 17:22> Date of Encounter: 11/30/17 Time of Encounter: 08:40 - Assessment and plan (1) Pulmonary embolism Current Visit: Yes Status: Acute Assessment and plan: Bilateral PE on CTA Chest Patient is on Xarelto for 3 weeks following DVT and Factor 5 Leiden diagnosis She says that she has been compliant with meds Echocardiogram demonstrates no evidence of Right heart strain, but borderline pulmonary htn Pulmonology is consulted, recommends CT of the abdomen/pelvis to rule out underlying malignancy We will hold xarelto, continue heparin drip Cardiac and O2 monitoring Qualifiers: Pulmonary embolism type: other Chronicity: acute Acute cor pulmonale presence: without acute cor pulmonale Qualified Code(s): I26.99 - Other pulmonary embolism without acute cor pulmonale (2) Deep vein thrombosis of lower extremity Current Visit: Yes Status: Acute Assessment and plan: History of trauma with right DVTx 2 weeks Redemonstration of right sided DVT on doppler Patient has not necessarily failed Xarelto, as she only just started it Continue Heparin for now, consider [facility] options as we approach discharge Qualifiers: Affected thrombotic vein of extremity: other lower extremity vein Chronicity: chronic Laterality: right Qualified Code(s): I82.591 - Chronic embolism and thrombosis of other specified deep vein of right lower extremity (3) Shingles Current Visit: Yes Status: Acute Assessment and plan: Valtrex 1000 mg every 8 hours oral Qualifiers: Herpes zoster complications: without complications Qualified Code(s): B02.9 - Zoster without complications (4) Diabetes mellitus Current Visit: Yes Status: Acute Assessment and plan: Continue home medicine with Accu-Chek and sliding scale. Diabetes diet Qualifiers: Diabetes mellitus type: type 2 Diabetes mellitus termite control servicer insulin use: with [facility] use Diabetes mellitus complication status: without complication Qualified Code(s): E11.9 - Type 2 diabetes mellitus without complications; Z79.4 - intermediate (current) use of insulin; Z79.4 - intermediate ( current) use of insulin; Z79.4 - intermediate (current) use of insulin; Z79.4 - intermediate (current) use of insulin (5) Hypertension Current Visit: Yes Status: Chronic Assessment and plan: Continue home medicine. Close monitoring Qualifiers: Hypertension type: essential hypertension Qualified Code(s): I10 - Essential (primary) hypertension - Time Spent With Patient Total time spent is greater than 50% in coordination of care (as documented) at patient's floor/unit and/or counseling patient: - Subjective Interval history: The patient is resting comfortably in bed at time of examination. She says that she's feeling improved from before, and is breathing easier. She says that the medicine she got from us last night was very helpful for her shingles pain. She has no other acute complaints at thsi time. - Constitutional Vitals: Temp Pulse Resp BP Pulse Ox 98.1 F 70 15 146/82 95 11/30/17 06:48 05/08/18 06:48 11/30/17 06:48 11/30/17 06:48 11/30/17 06:48 Exam: Gen: Vitals noted. No acute distress. HEENT: PERRL/EOMI, oropharynx clear, Normocephalic, atraumatic Neck: Supple. No adenopathy. Cardiac: RRR, no murmur, +S1/S2 Pulmonary: CTA bilaterally, no wheezes, rales or rhonchi, equal chest expansion Abdomen: soft, nontender, BS noted, no guarding Back: Nontender throughout. MSK: ROM intact, no joint swelling noted Extremities: trace b/l edema, nontender calf, no cyanosis or clubbing Skin: vesicular rash with significant erythema in the right S1 dermatomal distribution Neuro: A&Ox3, moves all extremities, no focal deficits Psych: Appropriate mood and behavior Internal Medicine: Result - Labs CBC & Chem 7: 11/30/17 03:26 11/30/17 03:26 Labs: Short CBC 11/30/17 Range/Units 03:26 WBC 2.8 L (4.3-11.1) K/mcL Hgb 12.8 (11.5-15.4) g/dL Hct 36.8 (35.3-44.9) % Plt Count 130 L (140-400) K/mcL Neutrophils # 1.3 L (1.6-8.9) K/mcL BMP 11/30/17 03:26 Sodium 141 Potassium 3.0 L Chloride 105 Carbon Dioxide 25 BUN 9 Creatinine 0.59 L Glucose 205 H Calcium 8.6 Liver Function 11/30/17 Range/Units 03:26 Total Bilirubin 0.8 (0.3-1.0) mg/dL AST 13 (13-39) Units/L ALT 13 (7-52) Units/L Alkaline Phosphatase 46 (34-104) Units/L Albumin 3.5 (3.5-5.7) g/dL - ABG Interpretation ABG results: PT/INR, D-dimer PT 16.8 Seconds (9.4-12.1) H 11/29/17 19:36 - Impressions Impressions Abdomen/Pelvis CT 11/30/17 13:00 IMPRESSION: 1. Right external iliac adenopathy of unclear etiology. If patient has prior CTs of the abdomen and pelvis (not in our system) prior exam can be compared if available and addendum made accordingly. The GI malignancy mentioned in the history is not well seen. 2. Mild intrahepatic ductal prominence, likely related to prior cholecystectomy. 3. Splenomegaly. 4. Status post hysterectomy. D/ / 11/30/2017 14:16:37 Truman Henriquez MD / [email or web address] Interpreting Provider: Truman Henriquez MD Echocardiogram 11/30/17 22:13 Impressions: LVEF 60-65%. Mild left ventricular diastolic dysfunction. Normal right ventricular structure and function. Mild mitral regurgitation. Mild tricuspid regurgitation. Borderline pulmonary hypertension. Left Ventricular Wall Motion: Rest Echo Findings All wall segments showed normal motion. Findings: Study Quality * Technically adequate exam. ECG Findings * Normal sinus rhythm with atrial ectopy. Left Ventricle * LVEF 60-65%. * Normal LV chamber size, wall thickness and function. * Mild left ventricular diastolic dysfunction. Right Ventricle * Normal right ventricular structure and function. Left Atrium * Mildly dilated left atrium. Right Atrium * Normal right atrial size. Mitral Valve * Normal mitral valve structure. * No mitral stenosis. * Mild mitral regurgitation. Aortic Valve * No aortic regurgitation. * Trileaflet aortic valve. * No aortic stenosis. Tricuspid Valve * Tricuspid valve not well visualized. * Mild tricuspid regurgitation. * Estimated RA pressure is 3 mmHg. * Estimated RVSP is 34 mmHg. * Borderline pulmonary hypertension. Pulmonic Valve * Pulmonic valve is not well visualized. * No pulmonic stenosis. * No pulmonic regurgitation. Pulmonary Artery * Pulmonary artery not well visualized. Aorta * Normally sized aortic root. Pericardium * There is no pericardial effusion present. Interatrial Septum * No evidence of PFO by color Doppler. IVC * The IVC is not dilated.
--- NOTE | 2017-11-30 16:16 | Electrocardiograph Report ---
[address] [place] [address] Test Date: 2017-11-29 Pat Name: Gracie Real Department: 103 Room: 2N2 Gender: F [employer] Architect: GILBERT : 1955 Requested By: [id number] Order Number: [id number] Reading MD: Christine Agudelo Measurements Intervals [place] Rate: 86 P: [place]: 0 QRS: 25 QRSD: 90 T: -10 QT: 365 QTc: 408 Interpretive Statements NORMAL SINUS RHYTHM ATRIAL ECTOPY Electronically Signed On 11-30-2017 16:15:23 EDT by Christine Agudelo
[2017-12-01 05:52] LABS: Basophils % 0.3 %; Hematocrit 37.1 % (35.3-44.9); Hemoglobin 12.7 g/dL (11.5-15.4); Immature Granulocytes % 0.7 % (0-4); Lymphocytes % 36.4 %; Mean Corpuscular HGB Conc 34.2 g/dL (31.6-35.5); Mean Corpuscular Hemoglobin 31.3 pg (28.0-33.3); Mean Corpuscular Volume 91.4 fL (83.0-100.0); Mean Platelet Volume 9.5 fL (9.4-12.4); Monocytes # 0.3 K/mcL (0.0-1.3); Monocytes % 10.8 %; Neutrophils # 1.5 K/mcL (1.6-8.9); Platelet Count 118 K/mcL (140-400); Red Blood Count 4.06 M/mcL (3.82-4.97); Red Cell Distribution Width 13.9 % (11.5-14.5); Segmented Neutrophils % 50.8 %
[2017-12-01 06:10] LABS: Lymphocytes # 1.1 K/mcL (0.6-4.6)
[2017-12-01 06:12] LABS: Alanine Aminotransferase 34 Units/L (7-52); Albumin 3.4 g/dL (3.5-5.7); Albumin/Globulin Ratio 1.5 (1.1-2.2); Alkaline Phosphatase 55 Units/L (34-104); Aspartate Amino Transferase 61 Units/L (13-39); BUN/Creatinine Ratio 12 (6-26); Bilirubin,Total 0.9 mg/dL (0.3-1.0); Blood Urea Nitrogen 7 mg/dL (6-20); Calcium 8.5 mg/dL (8.6-10.3); Carbon Dioxide 25 mEq/L (23-29); Chloride 107 mEq/L (98-107); Globulin 2.3 g/dL (2.4-3.5); Glucose 178 mg/dL (70-105); Osmolality,Calculated 290 (280-300); Potassium 3.9 mEq/L (3.5-5.1); Sodium 139 mEq/L (136-145); Total Protein 5.7 g/dL (6.4-8.9); eGFR For African Americans > 60 (> 60); eGFR For Non-African Americans > 60 (> 60)
[2017-12-01] MEDS: valACYclovir 500 MG TABLET PO SCH ×2 (06:20→14:23)
[2017-12-01 06:36] LABS: Platelet Estimate Decreased (Normal); Reactive Lymphocytes Present (Not Present)
[2017-12-01] MEDS: Lisinopril-HCTZ 20-12.5mg TABLET PO SCH (08:14)
[2017-12-01] MEDS: Gabapentin 100 MG CAPSULE PO SCH ×2 (08:14→14:24)
[2017-12-01] MEDS: Insulin LISPRO 300 UNITS/3 ML VIAL SQ SCH ×2 (08:16→12:37)
[2017-12-01] MEDS: Insulin DETEMIR 100 UNIT/ML X5UNITS SQ SCH (10:07)
[2017-12-01] MEDS: *HR* OxyCODONE Immed Rel 5 MG TABLET PO PRN (10:41)
[2017-12-01 11:59] VITALS: BP 118/59
--- NOTE | 2017-12-01 13:26 | Discharge Summary ---
<Saul Porter T - Last Filed: 12/01/17 16:46> Orders not resulted at time of discharge: Pending orders 11/29/17 17:45 Culture,Urine [RM] Routine Date of Encounter: 12/01/17 - Discharge Diagnosis (1) Pulmonary embolism Status: Acute Qualifiers: Pulmonary embolism type: other Chronicity: acute Acute cor pulmonale presence: without acute cor pulmonale Qualified Code(s): I26.99 - Other pulmonary embolism without acute cor pulmonale (2) Deep vein thrombosis of lower extremity Status: Acute Qualifiers: Affected thrombotic vein of extremity: other lower extremity vein Chronicity: chronic Laterality: right Qualified Code(s): I82.591 - Chronic embolism and thrombosis of other specified deep vein of right lower extremity (3) Shingles Status: Acute Qualifiers: Herpes zoster complications: without complications Qualified Code(s): B02.9 - Zoster without complications (4) Diabetes mellitus Status: Acute Qualifiers: Diabetes mellitus type: type 2 Diabetes mellitus skilled nursing insulin use: with intelligence operations use Diabetes mellitus complication status: without complication Qualified Code(s): E11.9 - Type 2 diabetes mellitus without complications; Z79.4 - ventilation worker (current) use of insulin; Z79.4 - ventilation worker ( current) use of insulin; Z79.4 - ventilation worker (current) use of insulin; Z79.4 - FDC (current) use of insulin (5) Hypertension Status: Chronic Qualifiers: Hypertension type: essential hypertension Qualified Code(s): I10 - Essential (primary) hypertension Hospital course: Ms. Real is a 61 year old female Discharge discussed with: nurse, case management - Time Spent with Patient Total time spent providing and/or coordinating discharge services: Greater than 30 minutes - Discharge Medications Prescriptions: Gabapentin [Neurontin] 100 mg PO TID 21 Days capsule Insulin ASPART [NovoLOG] 6 unit SQ TIDWM #2 vial Insulin LISPRO [HumaLOG] 6 units SQ TIDAC 30 Days vial valACYclovir [Valtrex] 1,000 mg PO Q8H 3 Days tablet Home Medications: Atorvastatin Calcium [Lipitor] 20 mg PO HS 11/29/17 [History] Carvedilol 12.5 mg PO BID 11/29/17 [History] Ergocalciferol (VITAMIN D2) [Vitamin D2] 50,000 unit PO QWEEK 05/07/18 [History] Insulin Glargine,Hum.rec.anlog [Basaglar Kwikpen U-100] 30 unit SQ BID 11/29/17 [History] Levothyroxine Sodium 88 mcg PO DAILY 11/29/17 [History] Lisinopril-HCTZ 20-12.5 [Prinzide 20-12.5] 1 tab PO DAILY 11/29/17 [History] Potassium Chloride [Klor-Con 10] 10 meq PO DAILY 11/29/17 [History] Rivaroxaban [Xarelto] 15 mg PO BID 11/29/17 [History] Sertraline [Zoloft] 50 mg PO DAILY 11/29/17 [History] Gabapentin [Neurontin] 100 mg PO TID 21 Days capsule 12/01/17 [Rx] Insulin ASPART [NovoLOG] 6 unit SQ TIDWM #2 vial 12/01/17 [Rx] Insulin LISPRO [HumaLOG] 6 units SQ TIDAC 30 Days vial 12/01/17 [Rx] valACYclovir [Valtrex] 1,000 mg PO Q8H 3 Days tablet 12/01/17 [Rx] Allergies/Adverse Reactions: 3 Allergy/AdvReac Type Severity Reaction Status Date / Time cephalexin [From Keflex] Allergy See Verified 11/29/17 17:24 Comments codeine Allergy See Verified 11/29/17 17:24 Comments Date of admission: 11/29/17 21:41 Primary care physician: Kota Joshi MD Consults: 11/29/17 22:07 Consult to Pulmonology [CONS] Routine Consulting Provider: [facility] Reason for Consult: Newly onset bilateral PE Call Completed: Yes - Constitutional Vitals: Temp Pulse Resp BP Pulse Ox 98.4 F 57 16 118/59 98 12/01/17 11:54 12/01/17 11:54 12/01/17 11:54 12/01/17 11:54 12/01/17 11:54 - Patient Status Disposition: Home, Self-Care Condition: Fair - Discharge Instructions Instructions: Gabapentin (By mouth), Valacyclovir (By mouth), Insulin Lispro ( Injection), Pulmonary Embolism (DC), Herpes Zoster (DC), Herpes Zoster (GEN), Deep Venous Thrombosis (DC), Diabetes Mellitus Type 2 in Adults (DC), Chronic Hypertension (DC) Follow Up With: Kota Joshi MD [Primary Care Provider] - (appt requested ) Additional Instructions: Follow-up with primary care provider in 2-3 days Continue Valtrex for total of one week course Continue Gabapentin for 3 weeks Continue to take 6U of insulin with meals Avoid strenuous activity unless directed by PCP Return to the hospital for worsening symptoms, shortness of breath, chest pain, or coughing blood - Attending Attestation I examined this patient and my medical decision-making was reviewed with the Resident Physician on 12/01/17. I agree with the documented findings, disposition and treatment plan as described except to the extent set forth below. 61 F with recently diagnosed Factor V leiden, DVT 11/17, presented with SOB, with acute unprovoked PE without R heart strain. She is not hypoxic or tachycardic. Incidental finding of R gluteal region shingles. Abd and Pelvis CT with contrast shows no evidence of malignancy, Chest CTA with PE. Other labs unremarkable It is difficult to say at this time that this is a failure of treatment as patient has no acute signs that accompany PE viz-pleuritic chest pain, hypoxia, tachcyardia. She is clinically and hemodynamically stable She already has an appointment with Heme/Onc, encourage to follow, discharge home on xarelto, add prandial insulin, follow up with PCP plan discussed with patient and her partner at the bedside, agrees with plan. <Eleazar Gee - Last Filed: 12/01/17 18:25> - NOTES TO OUTPATIENT PROVIDER Notes to Outpatient Provider: Patient continues to have advancement of pulmonary embolism diagnosis of factor V Leiden and DVT. She has been restarted on Xarelto as we do not feel she had adequate trial length to consider this a failure. She has also had poorly controlled DM, and she has been started on prandial insulin at 6U TIDAC which will likely require titration as outpatient. Finally, that patient was found to have shingles incidentally, and has been placed on short course valtrex and gabapentin. Orders not resulted at time of discharge: Pending orders 11/29/17 17:45 Culture,Urine [RM] Routine Date of Encounter: 12/01/17 Time of Encounter: 08:45 - Discharge Diagnosis (1) Pulmonary embolism Priority: Primary Status: Acute Qualifiers: Pulmonary embolism type: other Chronicity: acute Acute cor pulmonale presence: without acute cor pulmonale Qualified Code(s): I26.99 - Other pulmonary embolism without acute cor pulmonale (2) Deep vein thrombosis of lower extremity Priority: Secondary Status: Acute Qualifiers: Affected thrombotic vein of extremity: other lower extremity vein Chronicity: chronic Laterality: right Qualified Code(s): I82.591 - Chronic embolism and thrombosis of other specified deep vein of right lower extremity (3) Shingles Priority: Secondary Status: Acute Qualifiers: Herpes zoster complications: without complications Qualified Code(s): B02.9 - Zoster without complications (4) Diabetes mellitus Priority: Secondary Status: Acute Qualifiers: Diabetes mellitus type: type 2 Diabetes mellitus intelligence operations insulin use: with intelligence operations use Diabetes mellitus complication status: without complication Qualified Code(s): E11.9 - Type 2 diabetes mellitus without complications; Z79.4 - ventilation worker (current) use of insulin; Z79.4 - ventilation worker ( current) use of insulin; Z79.4 - FDC (current) use of insulin; Z79.4 - ventilation worker (current) use of insulin (5) Hypertension Priority: Secondary Status: Chronic Qualifiers: Hypertension type: essential hypertension Qualified Code(s): I10 - Essential (primary) hypertension Hospital course: Ms. Real is a 61 year old female with history of DM, recent diagnosis of factor V Leiden as well as DVT 2 weeks ago started on Vanceril toe. She presented to the ED with shortness of breath by 5 days as well as nausea and vomiting the past several days. She also noted that her leg edema and swelling again. At that time she said that she has been taking her Zaroxolyn as prescribed both concerned because her doctor told her to go to the emergency room immediately if she started to develop shortness of breath. In the ED she received a CTA of the chest which did demonstrate bilateral pulmonary emboli, and she also had redemonstration of her right leg DVT which was present previously. Additionally , at that time the patient complained of a rash in her right groin/buttock which was concerning to her and have arisen 2 days previous. This rash was examined and discharged shingles. The patient was initially placed on heparin drip, Valtrex and gabapentin. She received an echocardiogram which was grossly normal, and an abdominal CT to demonstrate any hidden malignancy which may create a hypercoagulable state. CT of the abdomen did not demonstrate any obvious masses. The patient continued to improve over the course of her stay, and she revealed that she had a scheduled appointment with hematology/oncology for follow-up on factor V Leiden. The patient is currently stable for discharge on reinitiation of xarelto with close follow up to PCP and Heme/Onc. Discharge discussed with: patient - Time Spent with Patient Total time spent providing and/or coordinating discharge services: Date of admission: 11/29/17 21:41 Primary care physician: Kota Joshi MD Consults: 11/29/17 22:07 Consult to Pulmonology [CONS] Routine Consulting Provider: [facility] Reason for Consult: Newly onset bilateral PE Call Completed: Yes Discharging clinician: Eleazar Gee Anticipated date of discharge: 12/01/17 - Constitutional Vitals: Temp Pulse Resp BP Pulse Ox 98.4 F 57 16 118/59 98 12/01/17 11:54 12/01/17 11:54 12/01/17 11:54 12/01/17 11:54 12/01/17 11:54 Exam: Gen: Vitals noted. No acute distress. HEENT: PERRL/EOMI, oropharynx clear, Normocephalic, atraumatic Neck: Supple. No adenopathy. Cardiac: RRR, no murmur, +S1/S2 Pulmonary: CTA bilaterally, no wheezes, rales or rhonchi, equal chest expansion Abdomen: soft, nontender, BS noted, no guarding Back: Nontender throughout. MSK: ROM intact, no joint swelling noted Extremities: trace b/l edema, nontender calf, no cyanosis or clubbing Skin: vesicular rash with significant erythema in the right S1 dermatomal distribution Neuro: A&Ox3, moves all extremities, no focal deficits Psych: Appropriate mood and behavior - Patient Status Functional capacity at discharge: independent ambulation Overall status at discharge: patient is progressing back to baseline - Diet and Activity Activity: increase activity as tolerated Diet: regular diet
[2017-12-01] MEDS ORDERED: *HR* Rivaroxaban 15 MG TABLET PO SCH (13:30)
== END 2017-12-01 17:37 | disposition home or self-care (01) | DRG 176 ==
LOC: EMEROO 13:09 → 2NENU 13:09 → SUATTDRO 21:41
PROVIDERS: ADMIT Internal Medicine; ATTEND Internal Medicine

== ENCOUNTER 2020-07-10 08:33 | Observation (INO) ==
[2020-07-10] MEDS ORDERED: Pregabalin 50 MG CAPSULE PO ONE (09:08)
[2020-07-10] MEDS ORDERED: Acetaminophen IV 1,000 MG/100 ML BAG IVPB ONE (09:08)
[2020-07-10] MEDS ORDERED: Clindamycin 900 MG/50 ML 900 MG/50 ML IV.SOLN IVPB ONE (09:19)
[2020-07-10] MEDS: Ringers Solution, Lactated 1,000 ML IVC ONE ×2 (09:31→15:25)
[2020-07-10] MEDS ORDERED: Lidocaine -MPF 4% 5 ML AMPUL ONE (09:58)
[2020-07-10] MEDS ORDERED: *HR* Propofol 200 MG/20 ML VIAL IVP ONE (10:03)
[2020-07-10] MEDS ORDERED: *HR* Midazolam HCl 2 MG/2 ML VIAL ONE (10:03)
[2020-07-10] MEDS ORDERED: *HR* HYDROMORPHONE 2 MG/ML VIAL ONE (10:03)
[2020-07-10] MEDS ORDERED: *HR* FentaNYL (PF) 100 MCG/2 ML VIAL ONE (10:03)
[2020-07-10] MEDS ORDERED: Ondansetron 4 MG/2 ML VIAL ONE ×2 (10:04→14:10)
[2020-07-10] MEDS ORDERED: Dexamethasone 4 MG/ML VIAL ONE (10:04)
[2020-07-10] MEDS ORDERED: *HR* Rocuronium Bromide 50 MG/5 ML VIAL ONE (10:04)
[2020-07-10] MEDS ORDERED: *HR* Succinylcholine 200 MG/10 ML VIAL IVP ONE (10:04)
[2020-07-10] MEDS ORDERED: *HR* Remifentanil 1 MG VIAL IVP ONE (10:04)
[2020-07-10] MEDS ORDERED: Lidocaine -MPF 2% 2 ML VIAL ONE (10:04)
[2020-07-10] MEDS ORDERED: *HR* Magnesium Sulfate 1 GM/2 ML VIAL ONE (10:05)
[2020-07-10] MEDS ORDERED: Ondansetron 4 MG/2 ML VIAL IVP PRN ×2 (10:58→16:16)
[2020-07-10] MEDS ORDERED: Nitroglycerin 0.4 MG TAB.SUBL SL PRN (10:58)
[2020-07-10] MEDS ORDERED: Naloxone 0.4 MG/ML INJ IVP PRN ×2 (10:58→16:16)
[2020-07-10] MEDS ORDERED: *HR* FentaNYL (PF) 100 MCG/2 ML VIAL IVP PRN (10:58)
[2020-07-10] MEDS ORDERED: Albuterol 2.5 MG/3 ML NEBULIZER IH PRN (10:58)
[2020-07-10] MEDS ORDERED: *HR* Metoprolol 5 MG/5 ML VIAL IVP PRN (10:58)
[2020-07-10] MEDS ORDERED: *HR* OxyCODONE Immed Rel 5 MG TABLET PO PRN (10:58)
[2020-07-10] MEDS ORDERED: Povidone-Iodine 45 ML, Sodium Chloride IRRigation 1,000 ML IR ONE (11:25)
[2020-07-10] MEDS ORDERED: Bacitracin 50,000 UNIT, Polymyxin B Sulfate 500,000 UNIT, Sodium Chloride IRRigation 1,... IR ONE (11:25)
[2020-07-10] MEDS ORDERED: *HR* PHENYLEPHRINE 1,000 MCG/10 ML SYRINGE IVP ONE (11:48)
[2020-07-10] MEDS ORDERED: EPHEDrine 50 MG/ML VIAL ONE (12:04)
[2020-07-10] MEDS ORDERED: *HR* Vasopressin 20 UNIT/ML VIAL ONE (12:54)
[2020-07-10] MEDS ORDERED: Sugammadex Sodium 200 MG/2 ML VIAL IV ONE (14:10)
[2020-07-10] MEDS: *HR* HYDROmorphone PF 0.5 MG/0.5 ML SYRINGE IVP PRN ×2 (14:48→14:55)
[2020-07-10] MEDS ORDERED: Ringers Solution, Lactated 1,000 ML IVC SCH (16:16)
[2020-07-10] MEDS ORDERED: Acetaminophen 325 MG TABLET PO PRN (16:16)
[2020-07-10] MEDS: carvediloL 6.25 MG TABLET PO SCH (16:32)
[2020-07-10] MEDS: *HR* Metformin 500 MG TABLET PO SCH (16:38)
[2020-07-10] MEDS: *HR* OxyCODONE Immed Rel 5 MG TABLET PO PRN (19:27)
[2020-07-10] MEDS: Clindamycin 900 MG/50 ML 900 MG/50 ML IV.SOLN IVPB SCH (19:28)
[2020-07-10] MEDS: *HR* HYDROcodone/Acet 5/325 mg TABLET PO PRN (22:20)
[2020-07-11] MEDS: *HR* OxyCODONE Immed Rel 5 MG TABLET PO PRN ×4 (03:46→20:54)
[2020-07-11] MEDS: Clindamycin 900 MG/50 ML 900 MG/50 ML IV.SOLN IVPB SCH (03:47)
[2020-07-11] MEDS: carvediloL 6.25 MG TABLET PO SCH ×2 (09:03→16:55)
[2020-07-11] MEDS: Lisinopril-HCTZ 20-12.5mg TABLET PO SCH (09:03)
[2020-07-11] MEDS: XULTOPHY SQ SCH (09:04)
[2020-07-11] MEDS: *HR* Metformin 500 MG TABLET PO SCH ×2 (09:05→16:55)
[2020-07-11] MEDS: Cholecalciferol (D-3) 1,000 UNIT (25MCG) TABLET PO SCH (09:09)
[2020-07-11] MEDS: *HR* HYDROcodone/Acet 5/325 mg TABLET PO PRN (16:17)
[2020-07-11] MEDS: *HR* Rivaroxaban 15 MG TABLET PO SCH (16:55)
[2020-07-12] MEDS: *HR* HYDROcodone/Acet 5/325 mg TABLET PO PRN ×3 (01:37→16:39)
[2020-07-12] MEDS: *HR* OxyCODONE Immed Rel 5 MG TABLET PO PRN ×2 (06:03→21:28)
[2020-07-12] MEDS: Lisinopril-HCTZ 20-12.5mg TABLET PO SCH (08:23)
[2020-07-12] MEDS: *HR* Metformin 500 MG TABLET PO SCH ×2 (08:23→16:39)
[2020-07-12] MEDS: carvediloL 6.25 MG TABLET PO SCH ×2 (08:24→16:39)
[2020-07-12] MEDS: XULTOPHY SQ SCH (08:24)
[2020-07-12] MEDS: diazePAM 5 MG TABLET PO PRN (13:14)
[2020-07-12] MEDS: Cholecalciferol (D-3) 1,000 UNIT (25MCG) TABLET PO SCH (16:35)
[2020-07-12] MEDS: *HR* Rivaroxaban 15 MG TABLET PO SCH (16:39)
[2020-07-13] MEDS: diazePAM 5 MG TABLET PO PRN ×2 (00:02→13:33)
[2020-07-13] MEDS: *HR* OxyCODONE Immed Rel 5 MG TABLET PO PRN (09:57)
[2020-07-13] MEDS: *HR* Metformin 500 MG TABLET PO SCH (09:58)
[2020-07-13] MEDS: Lisinopril-HCTZ 20-12.5mg TABLET PO SCH (09:58)
[2020-07-13] MEDS: carvediloL 6.25 MG TABLET PO SCH (09:58)
[2020-07-13] MEDS: XULTOPHY SQ SCH (09:59)
[2020-07-13] MEDS ORDERED: Cholecalciferol (D-3) 1,000 UNIT (25MCG) TABLET PO SCH (10:15)
[2020-07-13 10:19] VITALS: BP 158/75
== END 2020-07-13 13:35 | disposition home or self-care (01) ==
LOC: SAMDAY 08:33 → 3NENU 08:33
PROVIDERS: ADMIT Orthopaedic Surgery Orthopaedic Surgery of the Spine; ATTEND Orthopaedic Surgery Orthopaedic Surgery of the Spine